=== PATIENT | female | born 1990 | race Two or more races ===

== ENCOUNTER 2024-03-08 03:30 | Emergency (ER) | payer OTHER ==
[~2024-03-08] VITALS: Ht 165.1 cm; Wt 56.7 kg
[2024-03-08 06:36] VITALS: BP 111/77; TEMP 98.3; O2SAT 99
== END 2024-03-08 06:37 | disposition home or self-care (01) ==
LOC: ER 03:33
DX: F43.9 Reaction to severe stress, unspecified (principal); R06.02 Shortness of breath; R20.0 Anesthesia of skin; R20.2 Paresthesia of skin; Z56.6 Other physical and mental strain related to work; Z60.2 Problems related to living alone; Z20.822 Contact with and (suspected) exposure to COVID-19
CPT/HCPCS: 71045-TC